=== PATIENT | female | born 1940 | race Caucasian/White ===

== ENCOUNTER 2021-04-29 07:15 | Day surgery (SDC) | payer MEDICARE ==
[2021-04-28 12:33] LABS: ALANINE AMINOTRANSFERASE 13 U/L (12-78); ALBUMIN 3.3 g/dL (3.4-5.0); ANION GAP 6 mmol/L (5-15); CALCIUM 9.2 mg/dL (8.5-10.1); CHLORIDE 106 mmol/L (98-107); CREATININE 0.92 mg/dL (0.55-1.02)
[2021-04-28 12:36] LABS: ALKALINE PHOSPHATASE 44 U/L (45-117); BILIRUBIN,TOTAL 0.8 mg/dL (0.2-1.0); TOTAL PROTEIN 6.6 g/dL (6.4-8.2)
[~2021-04-29] VITALS: Ht 152.4 cm; Wt 67.4 kg
[~2021-04-29 07:15] MED LIST: LISI1TAB39 PO; LOVA40TA2 PO; OXYB10TA26 PO
[2021-04-29] MEDS ORDERED: CHLORHEXIDINE 15 ML UDC PO ONE (08:00)
[2021-04-29] MEDS ORDERED: LACTATED RINGERS 1,000 ML IV SCH (08:00)
[2021-04-29] MEDS ORDERED: CHLORHEXIDINE 15 ML UDC ONE (08:01)
[2021-04-29 08:13] VITALS: BP 163/76
[2021-04-29] MEDS ORDERED: BUPIVACAINE/PF 0.25% ONE (08:19)
[2021-04-29] MEDS ORDERED: EPINEPHRINE 1 MG/ML, 1ML ONE (08:19)
[2021-04-29] MEDS ORDERED: FENTANYL PF 100 MCG/2ML ONE (08:26)
[2021-04-29] MEDS ORDERED: NEOSTIGMINE 1 MG/ML, 10ML ONE (08:31)
[2021-04-29] MEDS ORDERED: ONDANSETRON 2MG/ML, 2ML ONE (08:31)
[2021-04-29] MEDS ORDERED: DEXAMETHASONE 4 MG/ML, 1ML ONE (08:31)
[2021-04-29] MEDS ORDERED: SUCCINYLCHOLINE 20 MG/ML, 10ML ONE (08:31)
[2021-04-29] MEDS ORDERED: PROPOFOL 10 MG/ML, 20ML ONE (08:31)
[2021-04-29] MEDS ORDERED: GLYCOPYRROLATE 0.2MG/1ML, 5ML ONE (08:31)
[2021-04-29] MEDS ORDERED: ROCURONIUM 10MG/ML,5ML ONE (08:31)
[2021-04-29] MEDS ORDERED: CEFAZOLIN 1,000 MG ONE (08:31)
[2021-04-29] MEDS ORDERED: HYDROcodone/APAP 5/325 TABLET PO PRN (09:30)
[2021-04-29] MEDS ORDERED: KETOROLAC 30 MG/1 ML IV PRN (09:30)
[2021-04-29] MEDS ORDERED: ONDANSETRON 2MG/ML, 2ML IV PRN (09:30)
== END 2021-04-29 12:08 | disposition home or self-care (01) ==
LOC: OUT 07:15
PROVIDERS: ATTEND Urology
DX: T83.89XA Other specified complication of genitourinary prosthetic devices, implants and grafts, initial encounter (principal); Y83.8 Other surgical procedures as the cause of abnormal reaction of the patient, or of later complication, without mention of misadventure at the time of the procedure; N39.46 Mixed incontinence; E78.5 Hyperlipidemia, unspecified; I10 Essential (primary) hypertension; F03.90 Unspecified dementia, unspecified severity, without behavioral disturbance, psychotic disturbance, mood disturbance, and anxiety; Z79.899 Other long term (current) drug therapy; Z20.822 Contact with and (suspected) exposure to COVID-19; Z98.890 Other specified postprocedural states
CPT/HCPCS: 36415; 57288; 80053; 93005; C1771; J0171; J0330; J0690; J1100; J2405; J2704; J2710; J3010; J7120; U0003; U0005